=== PATIENT | male | born 1950 | race Caucasian/White ===

== ENCOUNTER 2018-06-06 16:31 | Emergency (ER) | payer MEDICAID, MEDICARE, OTHER ==
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
[2018-06-06 22:22] VITALS: BP 180/83
== END 2018-06-06 18:10 | disposition home or self-care (01) ==
LOC: FB.ED 16:31
DX: T87.44 Infection of amputation stump, left lower extremity (principal); E10.9 Type 1 diabetes mellitus without complications; Z89.512 Acquired absence of left leg below knee; Z88.0 Allergy status to penicillin
CPT/HCPCS: 99283